=== PATIENT | male | born 1985 | race Caucasian/White ===

== ENCOUNTER 2021-08-04 18:13 | Emergency (ER) | payer BC ==
--- NOTE | 2021-08-04 18:36 | EDM.PDOC ---
ED HPI GENERAL MEDICAL PROBLEM - General Chief Complaint: ENT Problem Stated Complaint: DENTAL COMPLAINT Time Seen by Provider: 08/04/21 18:22 Source of Information: Reports: Patient, RN Notes Reviewed History Limitations: Reports: No Limitations - History of Present Illness INITIAL COMMENTS - FREE TEXT/NARRATIVE: Patient is a 36-year-old male who presents to the ER for evaluation of his right upper dental pain. States that he was sleeping the other night, and he had some pain in his right tooth, and then realized part of it was broken off. He has been getting by with ibuprofen for pain management but is concerned about some slight swelling noted to his right upper jaw, and into his right neck. He states he has felt feverish but no actual fevers, or any sort of chills not having any nausea vomiting or diarrhea. States he does have an appointment with a dentist in [place] this coming week but was concerned about the possibility of infection before then. - Related Data Allergies Allergy/AdvReac Type Severity Reaction Status Date / Time amoxicillin Allergy Hives Verified 08/04/21 18:26 Home Meds: Home Meds Clindamycin HCl 300 mg PO TID 7 Days #24 capsule 08/04/21 [Rx] Past Medical History - Past Health History Medical/Surgical History: Denies Medical/Surgical History Social & Family History - Tobacco Use Tobacco Use Status *Q: Current Every Day Tobacco User Years of Tobacco use: 10 Packs/Tins Daily: 1 - Caffeine Use Caffeine Use: Reports: Coffee - Recreational Drug Use Recreational Drug Use: No ED ROS ENT - Review of Systems Review Of Systems: Comprehensive ROS is negative, except as noted in HPI. ED EXAM, ENT - Physical Exam Exam: See Below Exam Limited By: No Limitations General Appearance: Alert, WD/WN, No Apparent Distress Mouth/Throat: Normal Inspection, Normal Gums, Normal Lips, Dental Pain (to last right upper molar) Respiratory/Chest: No Respiratory Distress, Lungs Clear, Normal Breath Sounds, No Accessory Muscle Use, Chest Non-Tender Cardiovascular: Normal Peripheral Pulses, Regular Rate, Rhythm, No Edema GI/Abdominal: Normal Bowel Sounds, Soft, Non-Tender, No Distention, No Mass Extremities: Normal Inspection, Normal Capillary Refill Neurological: Alert, Oriented, Normal Cognition, No Motor/Sensory Deficits Psychiatric: Normal Affect, Normal Mood Skin: Warm, Dry, Intact, Normal Color, No Rash Course - Vital Signs Last Recorded V/S: Last Vital Signs Temp 97.9 F 08/04/21 18:25 Pulse 80 08/04/21 18:25 Resp 18 08/04/21 18:25 BP 138/88 08/04/21 18:25 Pulse Ox 98 08/04/21 18:25 - Re-Assessments/Exams Free Text/Narrative Re-Assessment/Exam: 08/04/21 18:39 Patient presents to the ER for evaluation for his dental pain, we will start him on clindamycin as he states he has had an allergic reaction to amoxicillin in the past. States he did break out in hives. Departure - Departure Time of Disposition: 18:34 Disposition: Home, Self-Care 01 Condition: Good Clinical Impression: Pain, dental - Discharge Information *PRESCRIPTION DRUG MONITORING PROGRAM REVIEWED*: No *COPY OF PRESCRIPTION DRUG MONITORING REPORT IN PATIENT RAZ: No Prescriptions: Clindamycin HCl 300 mg PO TID 7 Days #24 capsule Instructions: Dental Pain Referrals: PCP,None [Primary Care Provider] - Forms: ED Department Discharge Additional Instructions: You have been evaluated in the ED for your dental pain. You have been provided with a script for clindamycin. Please take this medication as directed. 3 tablets for first dose, and then 1 tablet 3 times a day until gone. Please note this antibiotic can take up to 48 hours to provide coverage. If you do not notice an improvement in the swelling within 3 days time I recommend you seek care for reevaluation for change in antibiotics. This medication was electronically sent to the [place] pharmacy located in the [facility] grocery store. This antibiotic can cause diarrhea, recommend that you start a probiotic while taking this medication. You may take 500 mg Tylenol (acetaminophen) or 600 mg ibuprofen (Advil, Motrin) every 6 hours as needed for ongoing pain management. Do not exceed 4000 mg Tylenol or 3200 mg ibuprofen in a 24-hour time span. You may use hot pack/ ice packs to the affected area as tolerated in 15-20 minute intervals. Please keep your appointment with your dentist in [place] for ongoing management. Please return to the ED if your symptoms change or worsen. Sepsis Event Note (ED) - Focused Exam Vital Signs: Vital Signs Temp Pulse Resp BP Pulse Ox 08/04/21 18:25 97.9 F 80 18 138/88 98
== END 2021-08-04 18:50 | disposition home or self-care (01) ==
LOC: JD.ED 18:13
DX: K08.89 Other specified disorders of teeth and supporting structures (principal); Z72.0 Tobacco use; Z88.0 Allergy status to penicillin
CPT/HCPCS: 99282